=== PATIENT | female | born 1960 | race Asian ===

== ENCOUNTER → 2023-12-07 14:32 | Outpatient (REF) | payer OTHER, SELFPAY | LOC: WDC 14:32 | PROVIDERS: ATTENDING PHYSICIAN Surgery; FAMILY PHYSICIAN Family Medicine | DX: R92.8 Other abnormal and inconclusive findings on diagnostic imaging of breast (principal) | CPT/HCPCS: 76642 ==

== ENCOUNTER → 2024-05-25 17:38 | Outpatient (REF) | payer OTHER, SELFPAY | LOC: MRI 3T 17:38 | PROVIDERS: ATTENDING PHYSICIAN Specialist; FAMILY PHYSICIAN Family Medicine | DX: D32.0 Benign neoplasm of cerebral meninges (principal) | CPT/HCPCS: 70553; A9575 ==

== ENCOUNTER 2024-07-19 17:19 | Emergency (ER) | payer OTHER, SELFPAY ==
[2024-07-19 17:21] VITALS: BP 166/83
[2024-07-19 17:50] VITALS: BMI 17.0
--- NOTE | 2024-07-19 17:52 | ED.GENMED ---
History of Present Illness
General
Chief Complaint: Rabies
Source: patient
Time Seen by Provider: 07/19/24 17:38
History of Present Illness
History of Present Illness:
63yo [id number] female presenting for evaluation after being bitten/scratched several times by a feral cat. Patient was trying to rescue a kitten on the street with a broken tail. She picked up the cat which scratched her several times,
mostly in the right forearm and hand. She also believes that she was bitten but it happened so quickly that she is unsure. The staff at the animal rescue told her to go to the ED for rabies vaccinations. Unknown last Tdap. She denies any
paresthesias. She is otherwise asymptomatic.
Past History
Past History
ED Past Medical History: Other (Vertigo, ovarian cysts)
ED Past Surgical History: Cholecystectomy and Other (Cyst removal from forehead)
Social History
Tobacco: Non-smoker
Alcohol: None
Drug: None
Living: with family
Phy Exam
General Physical Exam
General Presentation: well appearing and no apparent distress
General age: appears stated age
General Skin: warm and dry
General Habitus: normal
General Mental: alert
General Hydration: appears well hydrated
ENT Exam
ENT Exam: normocephalic
Pulmonary Exam
Pulmonary Exam: no respiratory distress
Volant Coma Scale
Eye Opening: Spontaneous
Verbal Response: Oriented
Motor Response: Obeys Commands
GCS Total Score: 15
Musculoskeletal Exam
Musculoskeletal Exam: full ROM and other (ROM intact. No bony tenderness. 2+ radial pulses bilaterally. )
Skin Exam
Skin Exam: other (Excoriations noted throughout R forearm/hand. Minor scratch on L hand. No active bleeding. )
Psychiatric Exam
Psychiatric Exam: normal mood/affect
Course
Orders/Labs/Results
Orders:
Orders
07/19/24 17:51
Amoxicillin 875 mg/Clav 125 mg [Augmentin 875 mg/125 mg] 1 tablet PO NOW STA
Tetanus/Diphth/Acelpertussis [Adacel] 0.5 ml IM .ONCE ONE
07/19/24 18:01
Rabies Immune Globulin/Pf [HyperRAB] 900 unit IM NOW STA
07/19/24 18:15
Rabies Vaccine (Pcec)/Pf [Rabavert Rabies Vacc W-Diluent] 2.5 unit IM .ONCE ONE
Vital Signs
Initial and Last Documented VS:
Initial Vital Signs
Temp Pulse Resp BP Pulse Ox
97.5 F 79 16 166/83 100
07/19/24 17:21 07/19/24 17:21 07/19/24 17:21 07/19/24 17:21 07/19/24 17:21
Last Documented Vital Signs
Temp Pulse Resp BP Pulse Ox
97.5 F 79 16 166/83 100
07/19/24 17:21 07/19/24 17:21 07/19/24 17:21 07/19/24 17:21 07/19/24 17:21
MDM/Problems Addressed
Differential Diagnosis Includes:
63yoF here after being bitten/scratched by a stray kitten today. Multiple excoriations noted to R forearm/hand and L hand on exam. Bilateral upper extremities are neurovascularly intact. Patient was started on Augmentin for infection prophylaxis.
Tdap updated. She was started on the rabies vaccination series. She received rabies immunoglobulin as well as first rabies vaccine. Patient was given a prescription for the remainder of the rabies vaccinations and she was advised to call the
infusion center to schedule this. Patient advised to return to the ED with any signs of infection. She was discharged in stable condition.
*Critical Care Note
Total Time (30-74mins, 75-104mins- exclusive of procedures): Not Applicable
ED Attending Note
-
Portions of this chart may have been created with voice recognition software.� Occasional wrong word or��sound alike� substitutions may have occurred due to the inherent limitations of voice recognition software.
Discharge Plan
Departure
Patient Disposition: Home (Routine Discharge)
Date of Disposition: 07/19/24
Time of Disposition: 17:54
Patient with high blood pressure during this ER visit?: Yes
Discharge Problem:
Cat scratch of multiple sites, Need for prophylactic vaccination against rabies
Instructions: Animal Bites ED, Rabies Vaccine CDC Vaccine Information Statement (VIS)
Prescriptions:
New
rabies vacc,human diploid (PF) 2.5 unit recon soln
2.5 unit IM ONCE Qty: 3 0RF
Rx Instructions:
Administer the vaccine on 07/23/24, , and 08/02/24.
amoxicillin-pot clavulanate 875-125 mg tablet
1 tab PO BID Qty: 13 0RF
No Action
multivitamin [Daily Multiple] 1 EACH tablet
1 tab PO DAILY
cyanocobalamin (vitamin B-12) 2,500 MCG tablet
1 tab PO DAILY
lorazepam 0.5 MG tablet
0.5 mg PO Q8H PRN (Reason: anxiety) Qty: 28 0RF
Stand Alone Forms: Rabies Vaccine Post Exp Dosing
Activity Restrictions/Additional Instructions:
Take antibiotics as prescribed. Call the infusion center tomorrow to schedule the remainder of your vaccinations.
Return to the ER with any signs of infection (redness, drainage, warmth, fevers).
Interventions
Interventions:
*Risk Screen - Suicide Last Done: 07/19/24 17:21
Discharge Date and Time
Print Language: SINHALA
[2024-07-19] MEDS: RABAVERT RABIES VACC W-DILUENT 2.5 UNIT IM (18:12)
[2024-07-19] MEDS: AUGMENTIN 875 MG/125 MG 1 TABLET PO (18:12)
[2024-07-19] MEDS: ADACEL 0.5 ML IM (18:12)
[2024-07-19] MEDS: HyperRAB 900 UNIT IM (18:14)
== END 2024-07-19 19:04 | disposition home or self-care (01) ==
LOC: EMR 17:19
PROVIDERS: EMERGENCY PHYSICIAN Emergency Medicine; FAMILY PHYSICIAN Family Medicine
DX: S60.512A Abrasion of left hand, initial encounter (principal); W55.03XA Scratched by cat, initial encounter; Z23 Encounter for immunization; Z29.14 Encounter for prophylactic rabies immune globulin; Z20.3 Contact with and (suspected) exposure to rabies; R03.0 Elevated blood-pressure reading, without diagnosis of hypertension; Z90.49 Acquired absence of other specified parts of digestive tract
CPT/HCPCS: 99284; 90471; 96372; 90375; 90675; 90715

== ENCOUNTER → 2024-08-01 18:30 | Outpatient (REF) | payer OTHER, SELFPAY | LOC: MRI 3T 18:30 | PROVIDERS: ATTENDING PHYSICIAN Surgery; FAMILY PHYSICIAN Family Medicine | DX: R92.8 Other abnormal and inconclusive findings on diagnostic imaging of breast (principal) | CPT/HCPCS: 77049; A9585 ==

== ENCOUNTER 2024-08-02 15:12 | Outpatient (RCR) | payer OTHER, SELFPAY ==
[2024-07-23 15:15] VITALS: BP 133/63
[2024-07-23] MEDS: RABAVERT RABIES VACC W-DILUENT 2.5 UNIT IM (15:28)
[2024-07-26 15:45] VITALS: BP 150/66
[2024-07-26] MEDS: RABAVERT RABIES VACC W-DILUENT 2.5 UNIT IM (15:52)
[2024-08-02 15:15] VITALS: BP 135/67
[2024-08-02] MEDS: RABAVERT RABIES VACC W-DILUENT 2.5 UNIT IM (15:26)
== END 2024-08-09 23:59 | disposition home or self-care (01) ==
LOC: OID 15:12
PROVIDERS: ATTENDING PHYSICIAN Physician Assistant; FAMILY PHYSICIAN Family Medicine
DX: Z20.3 Contact with and (suspected) exposure to rabies (principal); Z23 Encounter for immunization
CPT/HCPCS: 90471; 90675

== ENCOUNTER → 2024-10-11 14:37 | Outpatient (REF) | payer OTHER, SELFPAY | LOC: WDC 14:37 | PROVIDERS: ATTENDING PHYSICIAN Obstetrics & Gynecology Gynecology; FAMILY PHYSICIAN Family Medicine | DX: Z12.31 Encounter for screening mammogram for malignant neoplasm of breast (principal) | CPT/HCPCS: 77063; 77067 ==

== ENCOUNTER → 2025-03-29 15:02 | Outpatient (REF) | payer OTHER, SELFPAY | LOC: WDC 15:02 | PROVIDERS: ATTENDING PHYSICIAN Obstetrics & Gynecology Gynecology; FAMILY PHYSICIAN Family Medicine | DX: R92.2 Inconclusive mammogram (principal); Z80.3 Family history of malignant neoplasm of breast | CPT/HCPCS: 76641 ==

== ENCOUNTER → 2025-10-01 15:58 | Outpatient (REF) | payer OTHER, SELFPAY | LOC: MRI 3T 15:58 | PROVIDERS: ATTENDING PHYSICIAN Surgery; FAMILY PHYSICIAN Family Medicine | DX: R92.2 Inconclusive mammogram (principal); Z91.89 Other specified personal risk factors, not elsewhere classified; Z80.3 Family history of malignant neoplasm of breast | CPT/HCPCS: 77049; A9585 ==